=== PATIENT | male | born 1985 | race Caucasian/White ===

== ENCOUNTER → 2024-04-18 | Outpatient (CLI) | payer OTHER ==
[2024-04-18 11:35] LABS: BASO # 0.1 10^3/uL (0.0-0.2); BASO % 1.1 % (0.0-1.0); EOS # 0.4 10^3/uL (0.0-0.5); EOS % 5.4 % (0.0-3.0); HEMATOCRIT 45.6 % (42.0-52.0); HEMOGLOBIN 15.7 g/dl (13.5-17.5); LYMPH # 2.3 10^3/uL (1.5-5.0); LYMPH % 30.1 % (24.0-44.0); MEAN CORPUSCULAR HEMOGLOBIN 31.3 pg (27.0-33.0); MEAN CORPUSCULAR HGB CONC 34.4 g/dl (32.0-36.5); MONO # 0.6 10^3/uL (0.0-0.8); MONO % 7.5 % (2.0-8.0); NEUTROPHILS # 4.2 10^3/uL (1.5-8.5); NEUTROPHILS % 55.6 % (36.0-66.0); PLATELET COUNT, AUTOMATED 240 10^3/uL (150-450); RED BLOOD COUNT 5.01 10^6/uL (4.30-6.10); WHITE BLOOD COUNT 7.6 10^3/uL (4.0-10.0)
[2024-04-18 11:52] LABS: HEMOGLOBIN A1c 5.1 % (4.0-6.0)
[2024-04-18 11:54] LABS: ERYTHROCYTE SEDIMENTATION RATE 10 mm/hr (0-15)
[2024-04-18 12:06] LABS: URIC ACID 6.3 MG/DL (3.7-9.2)
[2024-04-18 12:08] LABS: C REACTIVE PROTEIN QUANTITATIV < 0.40 MG/DL (<1.0)
[2024-04-18 12:09] LABS: ALBUMIN 3.9 G/DL (3.2-5.2); ALKALINE PHOSPHATASE 98 U/L (46-116); ALT/SGPT 31 U/L (7.0-40); AST/SGOT 14 U/L (<34); BILIRUBIN,TOTAL 0.4 MG/DL (0.3-1.2); BLOOD UREA NITROGEN 13 MG/DL (9-23); CALCIUM LEVEL 8.6 MG/DL (8.5-10.1); CARBON DIOXIDE LEVEL 29 MMOL/L (20-31); CHLORIDE LEVEL 107 MMOL/L (98-107); CHOLESTEROL LEVEL 214 MG/DL (<200); CREATININE FOR GFR 0.73 MG/DL (0.70-1.30); GLOMERULAR FILTRATION RATE > 60.0 (>60); GLUCOSE, FASTING 91 MG/DL (60-100); HDL CHOLESTEROL 43.6 MG/DL (>40); LDL CHOLESTEROL 143.8 MG/DL (<100); NON-HDL-C 170.4 MG/DL; POTASSIUM SERUM 4.1 MMOL/L (3.5-5.1); SODIUM LEVEL 141 MMOL/L (136-145); THYROID STIMULATING HORMONE 2.192 uIU/ML (0.55-4.78); TRIGLYCERIDES LEVEL 133 MG/DL (<150)
[2024-04-18 12:10] LABS: FREE T4 1.15 NG/DL (0.89-1.76); VITAMIN B12 LEVEL 446 PG/ML (211-911)
[2024-04-18 12:11] LABS: FOLATE 12.5 NG/ML (>5.4); RHEUMATOID FACTOR QUANT 4.4 IU/ML (<14); TOTAL 25(OH) VITAMIN D 18.1 NG/ML (20.0-100.0)
[2024-04-20 14:57] LABS: ANA PATTERN Nuclear, Nucleolar (NEGATIVE); ANA SCREEN, IFA POSITIVE (NEGATIVE); ANA TITER 1:40 titer (<1:40)
[2024-04-21 01:57] LABS: CYCLIC CITRULLINATED PEPTIDE < 16 UNITS (<20)
[2024-04-21 18:07] LABS: LYME TOTAL ANTIBODY CIA <= 0.90 Index (<=0.90)
== END ==
LOC: M LAB 09:46
PROVIDERS: ATTEND Registered Nurse
DX: R53.83 Other fatigue (principal); R63.5 Abnormal weight gain